=== PATIENT | male | born 1950 | race Caucasian/White ===

== ENCOUNTER 2018-01-05 14:36 | Inpatient (IN) | payer MEDICARE, OTHER ==
[~2018-01-05] VITALS: Ht 180.3 cm; Wt 108.9 kg
[~2018-01-05 14:36] MED LIST: ALBU90I INH; ALBU90OI INH; ALBU90OI6 INH; ALBU90OI61 INH; AMLO10 PO; AMLO5 PO; Adult Low Dose81 MG PO; BUPR150T2 PO; CALCA500CH PO; CARI350 PO; CEPH500 PO; CYCL10 PO; DILT120 PO; DOCU100 PO; FLUO20 PO; FLUSAL2505 IH; FLUT110OIA IH; HYDACE5 PO; HYDCHL12.5 PO; IBUP600 PO; LEVCAR2510 PO; LISI20 PO; LORA1 PO; MELO7.5 PO; METF500 PO; METO25ER PO; METPRE4DP PO; OXYACE5T PO; OXYC10ER PO; OXYC5 PO; RXOXYACE PO; TRAM50 PO
[2018-01-05 15:02] LABS: BASOPHILS ABSOLUTE AUTO 0.13 K/mm3 (0.00-0.23); BASOPHILS PERCENT AUTO 1 % (0-2); EOSINOPHILS ABSOLUTE AUTO 0.51 K/mm3 (0.00-0.68); EOSINOPHILS PERCENT AUTO 4 % (0-6); Hematocrit 46.6 % (37.0-53.0); Hemoglobin 16.2 g/dL (13.5-17.5); IMMATURE GRAN ABSOLUTE AUTO 0.08 K/mm3 (0.00-0.10); IMMATURE GRAN PERCENT AUTO 1 % (0-1); LYMPHOCYTES ABSOLUTE AUTO 3.77 K/mm3 (0.84-5.20); LYMPHOCYTES PERCENT AUTO 27 % (21-46); MONOCYTES ABSOLUTE AUTO 0.96 K/mm3 (0.16-1.47); MONOCYTES PERCENT AUTO 7 % (4-13); Mean Corpuscular HGB 31.3 pg (26.0-34.0); Mean Corpuscular HGB Conc 34.8 g/dL (31.5-36.5); Mean Corpuscular Volume 90 fL (80-100); Mean Platelet Volume 11.1 fL (9.1-12.4); NEUTROPHILS ABSOLUTE AUTO 8.38 K/mm3 (1.96-9.15); NEUTROPHILS PERCENT AUTO 61 % (41-73); Platelet Count 169 K/mm3 (150-400); RDW Coefficient Variation 13.2 % (11.7-14.2); Red Blood Cell Count 5.18 M/mm3 (4.30-5.90); White Blood Cell Count 13.83 K/mm3 (4.00-11.30)
[2018-01-05 15:14] LABS: International Normalized Ratio 1.04; Prothrombin Time Results 10.8 Sec (9.7-11.5)
[2018-01-05] MEDS ORDERED: BUDE10.22 INH (15:20)
[2018-01-05 15:30] LABS: Alanine Aminotransfer (ALT/SGP 37 U/L (12-78); Albumin, Blood 3.8 g/dL (3.4-5.0); Albumin/Globulin Ratio 0.8 (0.8-1.8); Alk Phos 78 U/L (50-136); Anion Gap 10 mmol/L (6-16); Aspartate Aminotrans (AST/SGOT 28 U/L (12-37); Bilirubin, Total 0.9 mg/dL (0.1-1.0); Blood Urea Nitrogen 14 mg/dL (8-24); Bun/Creatinine Ratio 15.8 (12.0-20.0); CO2, Blood 23 mmol/L (21-32); Calcium, Blood 9.2 mg/dL (8.5-10.1); Chloride, Blood 108 mmol/L (98-108); Creatinine, Blood 0.89 mg/dL (0.60-1.20); Globulin, Blood 4.5 g/dL (2.2-4.0); Glomerular Filtration Rate >60 (60-); Glucose, Blood 99 mg/dL (70-99); Sodium, Blood 141 mmol/L (136-145); Total Protein, Blood 8.3 g/dL (6.4-8.2)
[2018-01-06 05:59] LABS: Anion Gap 8 mmol/L (6-16); Blood Urea Nitrogen 15 mg/dL (8-24); Bun/Creatinine Ratio 18.1 (12.0-20.0); CO2, Blood 23 mmol/L (21-32); Calcium, Blood 9.1 mg/dL (8.5-10.1); Chloride, Blood 108 mmol/L (98-108); Creatinine, Blood 0.83 mg/dL (0.60-1.20); Glomerular Filtration Rate >60 (60-); Glucose, Blood 101 mg/dL (70-99); Potassium, Blood 4.7 mmol/L (3.5-5.5); Sodium, Blood 139 mmol/L (136-145)
[2018-01-06 06:15] LABS: BASOPHILS ABSOLUTE AUTO 0.06 K/mm3 (0.00-0.23); BASOPHILS PERCENT AUTO 0 % (0-2); EOSINOPHILS ABSOLUTE AUTO 0.16 K/mm3 (0.00-0.68); EOSINOPHILS PERCENT AUTO 1 % (0-6); Hematocrit 43.8 % (37.0-53.0); Hemoglobin 14.8 g/dL (13.5-17.5); IMMATURE GRAN ABSOLUTE AUTO 0.05 K/mm3 (0.00-0.10); IMMATURE GRAN PERCENT AUTO 0 % (0-1); LYMPHOCYTES ABSOLUTE AUTO 1.82 K/mm3 (0.84-5.20); LYMPHOCYTES PERCENT AUTO 13 % (21-46); MONOCYTES ABSOLUTE AUTO 0.87 K/mm3 (0.16-1.47); MONOCYTES PERCENT AUTO 6 % (4-13); Mean Corpuscular HGB 31.5 pg (26.0-34.0); Mean Corpuscular HGB Conc 33.8 g/dL (31.5-36.5); NEUTROPHILS ABSOLUTE AUTO 10.84 K/mm3 (1.96-9.15); NEUTROPHILS PERCENT AUTO 79 % (41-73); Platelet Count 119 K/mm3 (150-400); RDW Coefficient Variation 13.4 % (11.7-14.2); RDW Standard Deviation 46.1 fL (35.1-46.3)
[2018-01-06 06:17] LABS: Mean Corpuscular Volume 93 fL (80-100)
[2018-01-07 04:42] LABS: Mean Platelet Volume 11.5 fL (9.1-12.4); Platelet Count 99 K/mm3 (150-400)
== END 2018-01-07 14:50 | disposition short-term general hospital (02) | DRG 536 ==
LOC: ER 14:36 → SURS 15:54
PROVIDERS: Internal Medicine
PROC: 0QS6XZZ Reposition Right Upper Femur, External Approach (ICD-10-PCS; principal; 2018-01-05)
PROC: 3E0234Z Introduction of Serum, Toxoid and Vaccine into Muscle, Percutaneous Approach (ICD-10-PCS; 2018-01-05)
DX: S32.401A Unspecified fracture of right acetabulum, initial encounter for closed fracture (principal); J44.9 Chronic obstructive pulmonary disease, unspecified; F17.210 Nicotine dependence, cigarettes, uncomplicated; Z23 Encounter for immunization; W01.0XXA Fall on same level from slipping, tripping and stumbling without subsequent striking against object, initial encounter; L40.9 Psoriasis, unspecified
CPT/HCPCS: 36415; 71045; 72192; 73502; 80048; 80053; 85025; 85049; 85610; 93005; 93010; 94640; 94762; 96374; 96375; 96376; 99285; C9113; J0330; J1100; J1170; J1650; J2250; J2405; J2710; J3010; J7030; J7120

== ENCOUNTER 2018-08-26 16:41 | Inpatient (IN) | payer MEDICARE, OTHER ==
[~2018-08-26] VITALS: Ht 180.3 cm; Wt 107.0 kg
[~2018-08-26 16:41] MED LIST changes: +BUDE10.22 INH
[2018-08-26 17:48] LABS: BASOPHILS ABSOLUTE AUTO 0.04 K/mm3 (0.00-0.23); BASOPHILS PERCENT AUTO 1 % (0-2); EOSINOPHILS ABSOLUTE AUTO 0.07 K/mm3 (0.00-0.68); EOSINOPHILS PERCENT AUTO 1 % (0-6); Hematocrit 45.3 % (37.0-53.0); Hemoglobin 14.3 g/dL (13.5-17.5); IMMATURE GRAN ABSOLUTE AUTO 0.02 K/mm3 (0.00-0.10); IMMATURE GRAN PERCENT AUTO 0 % (0-1); LYMPHOCYTES ABSOLUTE AUTO 0.93 K/mm3 (0.84-5.20); LYMPHOCYTES PERCENT AUTO 12 % (21-46); MONOCYTES ABSOLUTE AUTO 0.61 K/mm3 (0.16-1.47); MONOCYTES PERCENT AUTO 8 % (4-13); Mean Corpuscular HGB 29.9 pg (26.0-34.0); Mean Corpuscular HGB Conc 31.6 g/dL (31.5-36.5); Mean Corpuscular Volume 95 fL (80-100); NEUTROPHILS ABSOLUTE AUTO 6.16 K/mm3 (1.96-9.15); NEUTROPHILS PERCENT AUTO 79 % (41-73); Platelet Count 101 K/mm3 (150-400); RDW Coefficient Variation 14.1 % (11.7-14.2); RDW Standard Deviation 49.3 fL (35.1-46.3); Red Blood Cell Count 4.78 M/mm3 (4.30-5.90); White Blood Cell Count 7.83 K/mm3 (4.00-11.30)
[2018-08-26 18:11] LABS: Alanine Aminotransfer (ALT/SGP 55 U/L (12-78); Albumin/Globulin Ratio 0.9 (0.8-1.8); Alk Phos 92 U/L (50-136); Anion Gap 8 mmol/L (6-16); Aspartate Aminotrans (AST/SGOT 43 U/L (12-37); Bilirubin, Total 1.1 mg/dL (0.1-1.0); Blood Urea Nitrogen 11 mg/dL (8-24); Bun/Creatinine Ratio 11.6 (12.0-20.0); CO2, Blood 25 mmol/L (21-32); Calcium, Blood 8.8 mg/dL (8.5-10.1); Chloride, Blood 106 mmol/L (98-108); Creatinine, Blood 0.95 mg/dL (0.60-1.20); Globulin, Blood 4.5 g/dL (2.2-4.0); Glomerular Filtration Rate >60 (60-); Glucose, Blood 100 mg/dL (70-99); Potassium, Blood 4.3 mmol/L (3.5-5.5); Sodium, Blood 139 mmol/L (136-145); Total Protein, Blood 8.5 g/dL (6.4-8.2)
[2018-08-26 18:12] LABS: Troponin I 0.045 ng/mL (0.000-0.040)
[2018-08-26] MEDS ORDERED: LOSA50 PO (19:29)
[2018-08-26] MEDS ORDERED: TIOT18 INH (19:30)
[2018-08-28 06:24] LABS: BASOPHILS ABSOLUTE AUTO 0.02 K/mm3 (0.00-0.23); BASOPHILS PERCENT AUTO 0 % (0-2); EOSINOPHILS PERCENT AUTO 0 % (0-6); Hematocrit 44.8 % (37.0-53.0); IMMATURE GRAN ABSOLUTE AUTO 0.09 K/mm3 (0.00-0.10); IMMATURE GRAN PERCENT AUTO 1 % (0-1); LYMPHOCYTES PERCENT AUTO 4 % (21-46); MONOCYTES PERCENT AUTO 4 % (4-13); Mean Corpuscular HGB 30.2 pg (26.0-34.0); Mean Corpuscular HGB Conc 31.3 g/dL (31.5-36.5); Mean Corpuscular Volume 97 fL (80-100); Mean Platelet Volume 12.1 fL (9.1-12.4); NEUTROPHILS ABSOLUTE AUTO 12.33 K/mm3 (1.96-9.15); NEUTROPHILS PERCENT AUTO 92 % (41-73); Platelet Count 98 K/mm3 (150-400); RDW Coefficient Variation 14.1 % (11.7-14.2); RDW Standard Deviation 50.1 fL (35.1-46.3); Red Blood Cell Count 4.64 M/mm3 (4.30-5.90); White Blood Cell Count 13.44 K/mm3 (4.00-11.30)
[2018-08-28 06:39] LABS: Anion Gap 9 mmol/L (6-16); Blood Urea Nitrogen 35 mg/dL (8-24); Bun/Creatinine Ratio 33.7 (12.0-20.0); CO2, Blood 23 mmol/L (21-32); Calcium, Blood 8.8 mg/dL (8.5-10.1); Chloride, Blood 106 mmol/L (98-108); Creatinine, Blood 1.04 mg/dL (0.60-1.20); Glomerular Filtration Rate >60 (60-); Glucose, Blood 137 mg/dL (70-99); Sodium, Blood 138 mmol/L (136-145)
[2018-08-28 09:25] LABS: PCO2 Arterial 50.1 mmHg (35-45); PO2 Arterial 155 mmHg (80-100); pH Blood Arterial 7.33 (7.35-7.45)
[2018-08-28 10:04] LABS: Troponin I 0.036 ng/mL (0.000-0.040); Very Low Density Lipoprot Chol 13 mg/dL (6-32)
[2018-08-28 10:05] LABS: CHOL/HDL RATIO 2.5; Cholesterol 84 mg/dL (50-200); HDL Cholesterol 34 mg/dL (>39); LDL/HDL RATIO 1.1; Low Density Lipoprotein Chol 37 mg/dL (0-110); Triglycerides 65 mg/dL (30-160)
[2018-08-28 11:55] LABS: Adenovirus Not Detected (NOT DETECT); Bordetella pertussis Not Detected (NOT DETECT); Chlamydophila pneumoniae Not Detected (NOT DETECT); Coronavirus 229E Not Detected (NOT DETECT); Coronavirus HKU1 Not Detected (NOT DETECT); Coronavirus NL63 Not Detected (NOT DETECT); Coronavirus OC43 Not Detected (NOT DETECT); Human Metapneumovirus Not Detected (NOT DETECT); Human Rhinovirus/Enterovirus Not Detected (NOT DETECT); Influenza A/2009-H1 Not Detected (NOT DETECT); Influenza A/H1 Not Detected (NOT DETECT); Influenza A/H3 Not Detected (NOT DETECT); Influenza B Not Detected (NOT DETECT); Mycoplasma pneumoniae Not Detected (NOT DETECT); Parainfluenza Virus 1 Not Detected (NOT DETECT); Parainfluenza Virus 2 Not Detected (NOT DETECT); Parainfluenza Virus 4 Not Detected (NOT DETECT); Respiratory Syncytial Virus Not Detected (NOT DETECT)
[2018-08-28 13:17] LABS: Influenza A Not Detected (NOT DETECT); Parainfluenza Virus 3 Detected (NOT DETECT)
[2018-08-29 04:09] LABS: BASOPHILS ABSOLUTE AUTO 0.01 K/mm3 (0.00-0.23); BASOPHILS PERCENT AUTO 0 % (0-2); EOSINOPHILS ABSOLUTE AUTO 0.01 K/mm3 (0.00-0.68); EOSINOPHILS PERCENT AUTO 0 % (0-6); Hematocrit 43.6 % (37.0-53.0); Hemoglobin 13.3 g/dL (13.5-17.5); IMMATURE GRAN ABSOLUTE AUTO 0.07 K/mm3 (0.00-0.10); IMMATURE GRAN PERCENT AUTO 1 % (0-1); LYMPHOCYTES PERCENT AUTO 4 % (21-46); MONOCYTES ABSOLUTE AUTO 0.31 K/mm3 (0.16-1.47); MONOCYTES PERCENT AUTO 3 % (4-13); Mean Corpuscular HGB 29.2 pg (26.0-34.0); Mean Corpuscular HGB Conc 30.5 g/dL (31.5-36.5); Mean Corpuscular Volume 96 fL (80-100); Mean Platelet Volume 11.5 fL (9.1-12.4); NEUTROPHILS PERCENT AUTO 93 % (41-73); Platelet Count 115 K/mm3 (150-400); Red Blood Cell Count 4.56 M/mm3 (4.30-5.90)
[2018-08-29 04:28] LABS: Albumin, Blood 3.3 g/dL (3.4-5.0); Anion Gap 6 mmol/L (6-16); Blood Urea Nitrogen 44 mg/dL (8-24); Bun/Creatinine Ratio 38.3 (12.0-20.0); CO2, Blood 32 mmol/L (21-32); Calcium, Blood 8.7 mg/dL (8.5-10.1); Chloride, Blood 104 mmol/L (98-108); Creatinine, Blood 1.15 mg/dL (0.60-1.20); Glomerular Filtration Rate >60 (60-); Glucose, Blood 144 mg/dL (70-99); Phosphorus, Blood 4.3 mg/dL (2.5-4.9); Potassium, Blood 4.9 mmol/L (3.5-5.5); Sodium, Blood 142 mmol/L (136-145)
[2018-08-29 04:40] LABS: PO2 Arterial 139 mmHg (80-100); pH Blood Arterial 7.25 (7.35-7.45)
[2018-08-29 04:41] LABS: PCO2 Arterial 75.8 mmHg (35-45)
[2018-08-29 06:55] LABS: Base Excess Venous 6.3 mmol/L; PCO2 Venous 69.5 mmHg (38-42); PO2 Venous 86.1 mmHg (38-42)
[2018-08-29 06:56] LABS: pH Blood Venous 7.28 (7.34-7.37)
[2018-08-29 11:58] LABS: PCO2 Arterial 72.3 mmHg (35-45); PO2 Arterial 78.9 mmHg (80-100); pH Blood Arterial 7.29 (7.35-7.45)
[2018-08-29 17:20] LABS: Base Excess Venous 9.7 mmol/L; PCO2 Venous 83.3 mmHg (38-42); PO2 Venous 29.3 mmHg (38-42); pH Blood Venous 7.25 (7.34-7.37)
[2018-08-30 04:13] LABS: BASOPHILS ABSOLUTE AUTO 0.01 K/mm3 (0.00-0.23); BASOPHILS PERCENT AUTO 0 % (0-2); EOSINOPHILS ABSOLUTE AUTO 0.02 K/mm3 (0.00-0.68); EOSINOPHILS PERCENT AUTO 0 % (0-6); Hematocrit 42.8 % (37.0-53.0); IMMATURE GRAN ABSOLUTE AUTO 0.09 K/mm3 (0.00-0.10); IMMATURE GRAN PERCENT AUTO 1 % (0-1); LYMPHOCYTES PERCENT AUTO 5 % (21-46); MONOCYTES ABSOLUTE AUTO 0.25 K/mm3 (0.16-1.47); MONOCYTES PERCENT AUTO 3 % (4-13); Mean Corpuscular HGB 29.7 pg (26.0-34.0); Mean Corpuscular HGB Conc 30.4 g/dL (31.5-36.5); Mean Corpuscular Volume 98 fL (80-100); Mean Platelet Volume 11.5 fL (9.1-12.4); NEUTROPHILS ABSOLUTE AUTO 8.49 K/mm3 (1.96-9.15); NEUTROPHILS PERCENT AUTO 91 % (41-73); Platelet Count 106 K/mm3 (150-400); RDW Coefficient Variation 13.5 % (11.7-14.2); RDW Standard Deviation 49.6 fL (35.1-46.3); Red Blood Cell Count 4.37 M/mm3 (4.30-5.90); White Blood Cell Count 9.36 K/mm3 (4.00-11.30)
[2018-08-30 04:53] LABS: Albumin, Blood 3.3 g/dL (3.4-5.0); Anion Gap 6 mmol/L (6-16); Blood Urea Nitrogen 41 mg/dL (8-24); Bun/Creatinine Ratio 47.1 (12.0-20.0); CO2, Blood 34 mmol/L (21-32); Calcium, Blood 8.5 mg/dL (8.5-10.1); Chloride, Blood 101 mmol/L (98-108); Creatinine, Blood 0.87 mg/dL (0.60-1.20); Glomerular Filtration Rate >60 (60-); Glucose, Blood 140 mg/dL (70-99); Potassium, Blood 4.8 mmol/L (3.5-5.5); Sodium, Blood 141 mmol/L (136-145)
[2018-08-30 05:18] LABS: PO2 Arterial 113 mmHg (80-100)
[2018-08-30 05:19] LABS: PCO2 Arterial 75.8 mmHg (35-45); pH Blood Arterial 7.29 (7.35-7.45)
[2018-08-30 16:51] LABS: Base Excess Venous 12.3 mmol/L; PCO2 Venous 67.1 mmHg (38-42); PO2 Venous 51.6 mmHg (38-42); pH Blood Venous 7.36 (7.34-7.37)
[2018-08-31 03:23] LABS: Base Excess Venous 10.5 mmol/L; Bicarbonate Venous 31.5 mmol/L (24.0-30.0); PCO2 Venous 65.8 mmHg (38-42)
[2018-08-31 03:25] LABS: pH Blood Venous 7.35 (7.34-7.37)
[2018-08-31 05:07] LABS: BASOPHILS ABSOLUTE AUTO 0.01 K/mm3 (0.00-0.23); BASOPHILS PERCENT AUTO 0 % (0-2); EOSINOPHILS PERCENT AUTO 0 % (0-6); Hematocrit 45.3 % (37.0-53.0); Hemoglobin 13.8 g/dL (13.5-17.5); IMMATURE GRAN ABSOLUTE AUTO 0.12 K/mm3 (0.00-0.10); IMMATURE GRAN PERCENT AUTO 1 % (0-1); LYMPHOCYTES ABSOLUTE AUTO 0.47 K/mm3 (0.84-5.20); LYMPHOCYTES PERCENT AUTO 4 % (21-46); MONOCYTES ABSOLUTE AUTO 0.33 K/mm3 (0.16-1.47); MONOCYTES PERCENT AUTO 3 % (4-13); Mean Corpuscular HGB 29.8 pg (26.0-34.0); Mean Corpuscular HGB Conc 30.5 g/dL (31.5-36.5); Mean Corpuscular Volume 98 fL (80-100); Mean Platelet Volume 11.9 fL (9.1-12.4); NEUTROPHILS ABSOLUTE AUTO 11.05 K/mm3 (1.96-9.15); NEUTROPHILS PERCENT AUTO 92 % (41-73); Platelet Count 106 K/mm3 (150-400); RDW Coefficient Variation 13.5 % (11.7-14.2); RDW Standard Deviation 48.7 fL (35.1-46.3); Red Blood Cell Count 4.63 M/mm3 (4.30-5.90); White Blood Cell Count 11.98 K/mm3 (4.00-11.30)
[2018-08-31 05:30] LABS: Albumin, Blood 3.5 g/dL (3.4-5.0); Anion Gap 4 mmol/L (6-16); Blood Urea Nitrogen 47 mg/dL (8-24); Bun/Creatinine Ratio 50.8 (12.0-20.0); CO2, Blood 36 mmol/L (21-32); Calcium, Blood 8.9 mg/dL (8.5-10.1); Chloride, Blood 102 mmol/L (98-108); Creatinine, Blood 0.93 mg/dL (0.60-1.20); Glomerular Filtration Rate >60 (60-); Glucose, Blood 147 mg/dL (70-99); Phosphorus, Blood 2.8 mg/dL (2.5-4.9); Sodium, Blood 142 mmol/L (136-145)
[2018-09-01 03:26] LABS: Base Excess Venous 13.7 mmol/L; Bicarbonate Venous 34.4 mmol/L (24.0-30.0); PCO2 Venous 67.8 mmHg (38-42); PO2 Venous 60.9 mmHg (38-42); pH Blood Venous 7.37 (7.34-7.37)
[2018-09-01 03:40] LABS: BASOPHILS ABSOLUTE AUTO 0.03 K/mm3 (0.00-0.23); BASOPHILS PERCENT AUTO 0 % (0-2); EOSINOPHILS ABSOLUTE AUTO 0.02 K/mm3 (0.00-0.68); EOSINOPHILS PERCENT AUTO 0 % (0-6); Hematocrit 43.7 % (37.0-53.0); Hemoglobin 13.5 g/dL (13.5-17.5); IMMATURE GRAN ABSOLUTE AUTO 0.31 K/mm3 (0.00-0.10); IMMATURE GRAN PERCENT AUTO 2 % (0-1); LYMPHOCYTES ABSOLUTE AUTO 0.83 K/mm3 (0.84-5.20); LYMPHOCYTES PERCENT AUTO 6 % (21-46); MONOCYTES ABSOLUTE AUTO 0.61 K/mm3 (0.16-1.47); MONOCYTES PERCENT AUTO 4 % (4-13); Mean Corpuscular HGB 29.9 pg (26.0-34.0); Mean Corpuscular HGB Conc 30.9 g/dL (31.5-36.5); Mean Corpuscular Volume 97 fL (80-100); NEUTROPHILS PERCENT AUTO 88 % (41-73); Platelet Count 145 K/mm3 (150-400); RDW Coefficient Variation 13.5 % (11.7-14.2); RDW Standard Deviation 48.3 fL (35.1-46.3); Red Blood Cell Count 4.52 M/mm3 (4.30-5.90)
[2018-09-01 03:46] LABS: Alanine Aminotransfer (ALT/SGP 82 U/L (12-78); Albumin, Blood 3.2 g/dL (3.4-5.0); Albumin/Globulin Ratio 0.9 (0.8-1.8); Alk Phos 49 U/L (50-136); Anion Gap 1 mmol/L (6-16); Aspartate Aminotrans (AST/SGOT 38 U/L (12-37); Bilirubin, Total 0.7 mg/dL (0.1-1.0); Blood Urea Nitrogen 50 mg/dL (8-24); Bun/Creatinine Ratio 58.7 (12.0-20.0); CO2, Blood 39 mmol/L (21-32); Calcium, Blood 8.5 mg/dL (8.5-10.1); Chloride, Blood 100 mmol/L (98-108); Creatinine, Blood 0.85 mg/dL (0.60-1.20); Globulin, Blood 3.4 g/dL (2.2-4.0); Glomerular Filtration Rate >60 (60-); Glucose, Blood 146 mg/dL (70-99); Potassium, Blood 5.5 mmol/L (3.5-5.5); Sodium, Blood 140 mmol/L (136-145); Total Protein, Blood 6.6 g/dL (6.4-8.2)
[2018-09-02 03:47] LABS: BASOPHILS ABSOLUTE AUTO 0.03 K/mm3 (0.00-0.23); BASOPHILS PERCENT AUTO 0 % (0-2); EOSINOPHILS ABSOLUTE AUTO 0.01 K/mm3 (0.00-0.68); EOSINOPHILS PERCENT AUTO 0 % (0-6); Hematocrit 40.1 % (37.0-53.0); Hemoglobin 12.7 g/dL (13.5-17.5); IMMATURE GRAN ABSOLUTE AUTO 0.26 K/mm3 (0.00-0.10); IMMATURE GRAN PERCENT AUTO 2 % (0-1); LYMPHOCYTES ABSOLUTE AUTO 1.04 K/mm3 (0.84-5.20); LYMPHOCYTES PERCENT AUTO 8 % (21-46); MONOCYTES ABSOLUTE AUTO 0.58 K/mm3 (0.16-1.47); MONOCYTES PERCENT AUTO 4 % (4-13); Mean Corpuscular HGB 29.8 pg (26.0-34.0); Mean Corpuscular HGB Conc 31.7 g/dL (31.5-36.5); Mean Platelet Volume 10.9 fL (9.1-12.4); NEUTROPHILS ABSOLUTE AUTO 11.15 K/mm3 (1.96-9.15); NEUTROPHILS PERCENT AUTO 85 % (41-73); Platelet Count 130 K/mm3 (150-400); RDW Coefficient Variation 13.2 % (11.7-14.2); RDW Standard Deviation 45.2 fL (35.1-46.3); Red Blood Cell Count 4.26 M/mm3 (4.30-5.90); White Blood Cell Count 13.07 K/mm3 (4.00-11.30)
[2018-09-02 03:48] LABS: Albumin, Blood 3.1 g/dL (3.4-5.0); Anion Gap 5 mmol/L (6-16); Blood Urea Nitrogen 36 mg/dL (8-24); Bun/Creatinine Ratio 43.1 (12.0-20.0); CO2, Blood 35 mmol/L (21-32); Calcium, Blood 8.4 mg/dL (8.5-10.1); Chloride, Blood 99 mmol/L (98-108); Creatinine, Blood 0.84 mg/dL (0.60-1.20); Glomerular Filtration Rate >60 (60-); Glucose, Blood 136 mg/dL (70-99); Phosphorus, Blood 3.3 mg/dL (2.5-4.9); Potassium, Blood 5.2 mmol/L (3.5-5.5); Sodium, Blood 139 mmol/L (136-145)
[2018-09-02 03:49] LABS: Mean Corpuscular Volume 94 fL (80-100)
[2018-09-03 04:17] LABS: Alanine Aminotransfer (ALT/SGP 75 U/L (12-78); Albumin, Blood 3.1 g/dL (3.4-5.0); Albumin/Globulin Ratio 0.9 (0.8-1.8); Alk Phos 43 U/L (50-136); Anion Gap 6 mmol/L (6-16); Aspartate Aminotrans (AST/SGOT 36 U/L (12-37); Bilirubin, Total 0.7 mg/dL (0.1-1.0); Blood Urea Nitrogen 32 mg/dL (8-24); CO2, Blood 34 mmol/L (21-32); Calcium, Blood 8.8 mg/dL (8.5-10.1); Chloride, Blood 99 mmol/L (98-108); Globulin, Blood 3.3 g/dL (2.2-4.0); Glomerular Filtration Rate >60 (60-); Glucose, Blood 154 mg/dL (70-99); Potassium, Blood 5.1 mmol/L (3.5-5.5); Sodium, Blood 139 mmol/L (136-145); Total Protein, Blood 6.4 g/dL (6.4-8.2)
[2018-09-04 04:25] LABS: Hematocrit 40.2 % (37.0-53.0); Hemoglobin 13.2 g/dL (13.5-17.5); Mean Corpuscular HGB Conc 32.8 g/dL (31.5-36.5); Mean Corpuscular Volume 91 fL (80-100); Mean Platelet Volume 10.7 fL (9.1-12.4); Platelet Count 163 K/mm3 (150-400); RDW Coefficient Variation 13.2 % (11.7-14.2); RDW Standard Deviation 44.4 fL (35.1-46.3); White Blood Cell Count 17.53 K/mm3 (4.00-11.30)
[2018-09-04 04:41] LABS: Albumin, Blood 3.3 g/dL (3.4-5.0); Anion Gap 6 mmol/L (6-16); Blood Urea Nitrogen 33 mg/dL (8-24); Bun/Creatinine Ratio 39.4 (12.0-20.0); CO2, Blood 34 mmol/L (21-32); Chloride, Blood 98 mmol/L (98-108); Creatinine, Blood 0.84 mg/dL (0.60-1.20); Glomerular Filtration Rate >60 (60-); Glucose, Blood 148 mg/dL (70-99); Phosphorus, Blood 3.7 mg/dL (2.5-4.9); Potassium, Blood 5.2 mmol/L (3.5-5.5); Sodium, Blood 138 mmol/L (136-145)
[2018-09-05 05:00] LABS: PCO2 Arterial 55.5 mmHg (35-45); PO2 Arterial 62.9 mmHg (80-100); pH Blood Arterial 7.42 (7.35-7.45)
[2018-09-05 05:18] LABS: Hematocrit 40.4 % (37.0-53.0); Hemoglobin 13.1 g/dL (13.5-17.5); Mean Corpuscular HGB 29.8 pg (26.0-34.0); Mean Corpuscular HGB Conc 32.4 g/dL (31.5-36.5); Mean Corpuscular Volume 92 fL (80-100); Mean Platelet Volume 10.8 fL (9.1-12.4); Platelet Count 154 K/mm3 (150-400); RDW Coefficient Variation 13.4 % (11.7-14.2); RDW Standard Deviation 45.2 fL (35.1-46.3); White Blood Cell Count 17.66 K/mm3 (4.00-11.30)
[2018-09-05 05:32] LABS: Albumin, Blood 3.1 g/dL (3.4-5.0); Anion Gap 6 mmol/L (6-16); Blood Urea Nitrogen 33 mg/dL (8-24); Bun/Creatinine Ratio 41.1 (12.0-20.0); CO2, Blood 34 mmol/L (21-32); Calcium, Blood 8.7 mg/dL (8.5-10.1); Chloride, Blood 99 mmol/L (98-108); Glomerular Filtration Rate >60 (60-); Glucose, Blood 103 mg/dL (70-99); Phosphorus, Blood 3.7 mg/dL (2.5-4.9); Potassium, Blood 4.4 mmol/L (3.5-5.5); Sodium, Blood 139 mmol/L (136-145)
[2018-09-06] MEDS ORDERED: CARV3.125 PO (11:20)
[2018-09-06] MEDS ORDERED: GUAI600T33 PO (11:21)
[2018-09-06] MEDS ORDERED: DOCU100 PO (11:21)
[2018-09-06] MEDS ORDERED: MAGCHL64ER PO (11:22)
[2018-09-06] MEDS ORDERED: SIME80CH PO (11:23)
[2018-09-06] MEDS ORDERED: GAVILAX17 GM PO (11:23)
[2018-09-06] MEDS ORDERED: PRED10 PO (11:26)
[2018-09-06] MEDS ORDERED: ALPR.5 PO (11:37)
[2018-09-06] MEDS ORDERED: FURO20 PO (11:38)
== END 2018-09-06 12:48 | disposition home or self-care (01) | DRG 291 ==
LOC: ER 16:41 → ICUE 19:52 → MEDS 19:52 → ICUE 21:02 → MEDS 21:48 → ICUE 08-28 09:39 → MEDS 08-31 18:25 → ICUE 08-31 18:54 → ICUW 09-01 17:06 → PCU 09-03 15:28
PROVIDERS: Emergency Medicine; Family Medicine; Hospitalist; Internal Medicine; Internal Medicine Critical Care Medicine; Internal Medicine Pulmonary Disease
PROC: 5A09357 Assistance with Respiratory Ventilation, Less than 24 Consecutive Hours, Continuous Positive Airway Pressure (ICD-10-PCS; principal; 2018-08-26)
DX: I11.0 Hypertensive heart disease with heart failure (principal); J96.01 Acute respiratory failure with hypoxia; I16.1 Hypertensive emergency; J44.1 Chronic obstructive pulmonary disease with (acute) exacerbation; E87.3 Alkalosis; I24.8 Other forms of acute ischemic heart disease; I50.41 Acute combined systolic (congestive) and diastolic (congestive) heart failure; Z68.34 Body mass index [BMI] 34.0-34.9, adult; E66.9 Obesity, unspecified; F17.210 Nicotine dependence, cigarettes, uncomplicated; L40.9 Psoriasis, unspecified; E87.70 Fluid overload, unspecified; D69.6 Thrombocytopenia, unspecified; I42.9 Cardiomyopathy, unspecified; T50.1X5A Adverse effect of loop [high-ceiling] diuretics, initial encounter; Y92.239 Unspecified place in hospital as the place of occurrence of the external cause; D72.829 Elevated white blood cell count, unspecified; R74.8 Abnormal levels of other serum enzymes; B33.8 Other specified viral diseases; I42.0 Dilated cardiomyopathy
CPT/HCPCS: 36415; 36600; 71045; 74176; 80048; 80053; 80061; 80069; 82803; 83690; 83735; 83880; 84145; 84484; 85025; 85027; 85379; 87070; 87205; 87486; 87581; 87633; 87798; 90686; 93005; 93010; 93306; 93971; 94010; 94640; 94644; 94660; 94760; 94761; 94762; 96365; 96375; 97162; 97165; 97530; 99285-25; 99406; C1751; C9113; G8978; G8979; G8980; G8987; G8988; G8989; J0360; J0456; J0696; J1650; J1940; J2060; J2270; J2405; J2765; J2920; J2930; J3010; J7040; J7050

== ENCOUNTER 2018-11-03 07:24 | Day surgery (SDC) | payer MEDICARE, OTHER ==
[~2018-11-03] VITALS: Ht 180.3 cm; Wt 114.0 kg
[~2018-11-03 07:24] MED LIST changes: +ALPR.5 PO; +ASPI325 PO; -Adult Low Dose81 MG PO; +CARV3.125 PO; +FURO20 PO; +GAVILAX17 GM PO; +GUAI600T33 PO; +Gas Relief80 MG PO; +LOSA50 PO; +MAGNESIUM100 MG PO; +PRED10 PO; +SIME80CH PO; +TIOT18 INH
[2018-11-03] MEDS ORDERED: DOXY100 PO (07:48)
[2018-11-03] MEDS ORDERED: BUDE6HFA INH (08:07)
[2018-11-03] MEDS ORDERED: ATOR40TA PO (12:44)
[2018-11-03] MEDS ORDERED: METO25ER PO (12:44)
[2018-11-03] MEDS ORDERED: Adult Low Dose81 MG PO (12:47)
--- NOTE | 2018-11-03 13:29 | NUR ---
PT MEDICATED WITH METOPROLOL SUCCINATE 25 MG PO NOW FOR HTN PER DR. LINARES. WILL CONTINUE TO MONITOR VS.
--- NOTE | 2018-11-03 14:36 | NUR ---
PT VERBALIZED UNDERSTANDING OF D/C INSTRUCTIONS, PAPERWORK PROVIDED TO PT IN [facility]. TR BAND REMOVED FROM RIGHT WRIST, RED CLOTH DOT DRESSING APPLIED. NO ACTIVE BLEEDING, OOZING, OR PAIN. ARM BOARD PLACED BACK ONTO RIGHT WRIST FOR SUPPORT. PT HERE TO DRIVE HIM HOME. TAKEN OUT TO PRIVATE VEHICLE VIA W/C. NADN AT TIME OF DISPO. PT ENCOURAGED TO FOLLOW UP WITH PROVIDER SCHEDULED. SHAWN.
--- NOTE | 2018-11-03 14:38 | NUR ---
PT IV WAS REMOVED FROM LFA WITH CATH INTACT, PRESSURE DRESSING APPLIED BEFORE DISPO.
== END 2018-11-03 14:40 | disposition home or self-care (01) ==
LOC: MHTC 07:24
PROC: 4A023N8 Measurement of Cardiac Sampling and Pressure, Bilateral, Percutaneous Approach (ICD-10-PCS; principal; 2018-11-03)
PROC: B2111ZZ Fluoroscopy of Multiple Coronary Arteries using Low Osmolar Contrast (ICD-10-PCS; principal; 2018-11-03)
DX: I25.10 Atherosclerotic heart disease of native coronary artery without angina pectoris (principal); I27.20 Pulmonary hypertension, unspecified; J44.9 Chronic obstructive pulmonary disease, unspecified; I42.9 Cardiomyopathy, unspecified; I50.9 Heart failure, unspecified
CPT/HCPCS: 85347; 93454; 93460; 93571; 93572; 99152; 99153; C1769; C1887; C1894; J1644; J2250; J3010; J7030; Q9967

== ENCOUNTER 2019-04-06 18:57 | Inpatient (IN) | payer MEDICARE, OTHER ==
[~2019-04-06] VITALS: Ht 180.3 cm; Wt 114.9 kg
[~2019-04-06 18:57] MED LIST changes: +ATOR40TA PO; +Adult Low Dose81 MG PO; +BUDE6HFA INH; +DOXY100 PO; -LOSA50 PO; +LOSARTAN POTAS100 MG PO; -MAGNESIUM100 MG PO
[2019-04-06 20:15] LABS: BASOPHILS ABSOLUTE AUTO 0.03 K/mm3 (0.00-0.23); BASOPHILS PERCENT AUTO 0 % (0-2); EOSINOPHILS ABSOLUTE AUTO 0.26 K/mm3 (0.00-0.68); EOSINOPHILS PERCENT AUTO 3 % (0-6); Hematocrit 35.9 % (37.0-53.0); Hemoglobin 11.7 g/dL (13.5-17.5); IMMATURE GRAN ABSOLUTE AUTO 0.03 K/mm3 (0.00-0.10); IMMATURE GRAN PERCENT AUTO 0 % (0-1); LYMPHOCYTES ABSOLUTE AUTO 1.07 K/mm3 (0.84-5.20); LYMPHOCYTES PERCENT AUTO 13 % (21-46); MONOCYTES ABSOLUTE AUTO 0.56 K/mm3 (0.16-1.47); MONOCYTES PERCENT AUTO 7 % (4-13); Mean Corpuscular HGB Conc 32.6 g/dL (31.5-36.5); Mean Corpuscular Volume 95 fL (80-100); Mean Platelet Volume 11.6 fL (9.1-12.4); NEUTROPHILS ABSOLUTE AUTO 6.39 K/mm3 (1.96-9.15); NEUTROPHILS PERCENT AUTO 77 % (41-73); Platelet Count 117 K/mm3 (150-400); RDW Coefficient Variation 14.2 % (11.7-14.2); RDW Standard Deviation 49.1 fL (35.1-46.3); Red Blood Cell Count 3.77 M/mm3 (4.30-5.90); White Blood Cell Count 8.34 K/mm3 (4.00-11.30)
[2019-04-06 20:36] LABS: Alanine Aminotransfer (ALT/SGP 119 U/L (12-78); Albumin, Blood 3.3 g/dL (3.4-5.0); Albumin/Globulin Ratio 0.8 (0.8-1.8); Alk Phos 115 U/L (50-136); Anion Gap 4 mmol/L (6-16); Aspartate Aminotrans (AST/SGOT 74 U/L (12-37); Bilirubin, Total 0.7 mg/dL (0.1-1.0); Blood Urea Nitrogen 20 mg/dL (8-24); Bun/Creatinine Ratio 17.9 (12.0-20.0); CO2, Blood 28 mmol/L (21-32); Calcium, Blood 8.7 mg/dL (8.5-10.1); Chloride, Blood 111 mmol/L (98-108); Creatinine, Blood 1.12 mg/dL (0.60-1.20); Glomerular Filtration Rate >60 (60-); Glucose, Blood 104 mg/dL (70-99); Potassium, Blood 4.4 mmol/L (3.5-5.5); Sodium, Blood 143 mmol/L (136-145); Total Protein, Blood 7.3 g/dL (6.4-8.2); Troponin I <0.015 ng/mL (0.000-0.040)
[2019-04-06] MEDS ORDERED: CARV6.25 PO (20:53)
[2019-04-06] MEDS ORDERED: MAGNESIUM100 MG PO (21:23)
[2019-04-07 04:02] LABS: Hematocrit 36.9 % (37.0-53.0); Hemoglobin 12.1 g/dL (13.5-17.5); Mean Corpuscular HGB 31.1 pg (26.0-34.0); Mean Corpuscular HGB Conc 32.8 g/dL (31.5-36.5); Mean Corpuscular Volume 95 fL (80-100); Mean Platelet Volume 11.5 fL (9.1-12.4); Platelet Count 114 K/mm3 (150-400); RDW Coefficient Variation 14.1 % (11.7-14.2); RDW Standard Deviation 48.6 fL (35.1-46.3); Red Blood Cell Count 3.89 M/mm3 (4.30-5.90); White Blood Cell Count 7.34 K/mm3 (4.00-11.30)
[2019-04-07 04:22] LABS: Alanine Aminotransfer (ALT/SGP 105 U/L (12-78); Albumin, Blood 3.2 g/dL (3.4-5.0); Albumin/Globulin Ratio 0.8 (0.8-1.8); Alk Phos 112 U/L (50-136); Anion Gap 6 mmol/L (6-16); Aspartate Aminotrans (AST/SGOT 46 U/L (12-37); Bilirubin, Total 0.7 mg/dL (0.1-1.0); Blood Urea Nitrogen 19 mg/dL (8-24); Bun/Creatinine Ratio 20.6 (12.0-20.0); CO2, Blood 27 mmol/L (21-32); Calcium, Blood 8.8 mg/dL (8.5-10.1); Chloride, Blood 109 mmol/L (98-108); Creatinine, Blood 0.92 mg/dL (0.60-1.20); Glomerular Filtration Rate >60 (60-); Glucose, Blood 160 mg/dL (70-99); Potassium, Blood 4.3 mmol/L (3.5-5.5); Sodium, Blood 142 mmol/L (136-145); Total Protein, Blood 7.2 g/dL (6.4-8.2)
--- NOTE | 2019-04-07 06:14 | NUR ---
PT NEW ADMIT THIS SHIFT FOR DX ACUTE CHF, BRADYCARDIA, NEW BBB. RATE HAS BEEN NOTED LOW 34 AT TIMES, PT DENIES DIZZINESS/VERTIGO, DENIES CP/PRESSURE, DENIES N/V, STATES THAT HE FEELS FATIGUED. 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 LUNGS DIM THROUGHOUT, MAINTAINS SATS WHEN AWAKE WELL, WITH SLEEP HE IS NOTED TO DECREASE TO 89% WITH OXYGEN AT 3 L/MIN VIA NC, HE REPORTS THAT HE DOES HAVE SLEEP APNEA HOWEVER DOES NOT HAVE CPAP AT HOME AND DECLINES OFFERED CPAP.
--- NOTE | 2019-04-07 08:00 | NUR ---
DR. THOMPSON IN TO SEE PATIENT.
--- NOTE | 2019-04-07 08:15 | NUR ---
INITIAL ASSESSMENT PATIENT RESTING QUIETLY IN BED UPON ENTERING ROOM. PATIENT ALERT AND ORIENTED, AFEBRILE. PATIENT PLEASANT AND COOPERATIVE. PATIENT SBA. PATIENT DECREASED TO 2 L NC FROM 4 L NC AND REMAINS SATTING 90% AND GREATER. PATIENT STATES AT HOME HE WEARS 3-4 L NC. PATIENT HAS MOIST, PRODUCTIVE COUGH- PRODUCING MODERATE AMOUNT OF THICK, REED SPUTUM. EXPIRATORY RHONCHI NOTED IN RUL, AND LOWER LUNG LOBES. EXPIRATORY WHEEZE NOTED IN CARMEN. PATIENT SOB WITH EXERTION. 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 HR 34 TO 70S. BP 193/ 99. DR. THOMPSON AWARE. ABDOMEN MODERATELY DISTENDED; PATIENT STATES NORMAL FOR HIM. ABDOMEN SOFT, NONTENDER, WITH HYPERACTIVE BS NOTED. LAST BM YESTERDAY. PATIENT VOIDING YELLOW URINE INTO BEDSIDE URINAL WITH NO PROBLEMS. SKIN IS DRY AND FRAGILE. SCALING NOTED TO BLES. SCATTERED BRUISES NOTED TO BUES. TRACE EDEMA NOTED IN LLE. 2+ EDEMA NOTED R ANKLE. IV FLUSHED AND SALINE LOCKED. BED LOW, CALL LIGHT IN REACH. WILL CONTINUE TO MONITOR PATIENT FREQUENTLY THROUGHTOUT SHIFT.
--- NOTE | 2019-04-07 09:49 | NUR ---
Echocardiogram performed.
--- NOTE | 2019-04-07 11:15 | NUR ---
PATIENT TAKEN TO [facility] FOR PACEMAKER PLACEMENT PROCEDURE.
--- NOTE | 2019-04-07 14:15 | NUR ---
PATIENT RETURNED FROM [facility] AT 1405. PATIENT AWAKE, ALERT AND ORIENTED. PATIENT AFEBRILE. PATIENT HAS NO COMPLAINTS OF PAIN. PATIENT SATTING 90% AND GREATER ON RA. 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 INFORMED BY HEART CENTER RN THAT DEVICE HAS LOW OF 60 AND HIGH OF 130 FOR HR. PATIENT CURRENTLY OCCASIONALLY PACED- APPEARS TO BE IN SR WITH BBB. HR IN THE 70S. SBP IN THE 180S. SLING APPLIED TO LEFT ARM. PATIENT KNOWS THAT HE MUST NOT LIFT HIS LEFT ARM ABOVE HIS SHOULDER. PATIENT TO KEEP WOUND CLEAN AND DRY FOR 7 DAYS. NO OTHER ACUTE CHANGES TO NOTE ON AT THIS TIME. VISITOR AT BEDSIDE. BED LOW, CALL LIGHT IN REACH.
--- NOTE | 2019-04-07 15:00 | NUR ---
SPOKE TO DR. LINARES CONCERNING PATIENT'S SBP UP TO 180S. DR. LINARSE INSTRUCTED TO GIVE 2100 COZAAR AND NORVASC NOW. WILL GIVE AND CONTINUE TO MONITOR.
[2019-04-07 16:42] LABS: Anion Gap 6 mmol/L (6-16); Blood Urea Nitrogen 22 mg/dL (8-24); Bun/Creatinine Ratio 20.4 (12.0-20.0); CO2, Blood 32 mmol/L (21-32); Calcium, Blood 9.4 mg/dL (8.5-10.1); Chloride, Blood 103 mmol/L (98-108); Creatinine, Blood 1.08 mg/dL (0.60-1.20); Glomerular Filtration Rate >60 (60-); Glucose, Blood 161 mg/dL (70-99); Potassium, Blood 3.9 mmol/L (3.5-5.5); Sodium, Blood 141 mmol/L (136-145)
--- NOTE | 2019-04-07 16:52 | NUR ---
SPOKE TO DR. LINARES ABOUT PATIENT'S CONTINUED HTN. SBP IN THE 170S. ALSO INFORMED THAT PATIENT IS COMPLAINING ABOUT 6/10 PAIN IN CHEST WALL WHERE PACEMAKER INSERTED. ORDERS RECEIVED. PATIENT IS SATTING 90% AND GREATER ON RA. NO OTHER ACUTE CHANGES TO NOTE ON AT THIS TIME. WILL CONTINUE TO MONITOR.
--- NOTE | 2019-04-07 18:11 | NUR ---
SPOKE TO DR. THOMPSON ABOUT PATIENT'S CONTINUED HYPERTENSION, SBP 180, DESPITE RELIEF WITH PRN PAIN MEDICATION GIVEN AND PRN HYDRALAZINE GIVEN. ORDERS RECEIVED. WILL CONTINUE TO MONITOR.
--- NOTE | 2019-04-07 18:32 | NUR ---
SHIFT SUMMARY PATIENT REMAINED ALERT AND ORIENTED T/O SHIFT. AFEBRILE. PATIENT DID NOT HAVE ANY COMPLAINTS OF PAIN UNTL AFTER PACEMAKER PROCEDURE. PATIENT GIVEN PRN PERCOCET. PATIENT HAS BEEN SATTING WELL ON RA TO 2 L NC. PATIENT HAS CONTINUED TO HAVE MOIST, PRODUCTIVE COUGH. LUNGS HAVE MOSTLY BEEN WHEEZY/ RHONCHOROUS. PATIENT 2 DEGREE TYPE 2 BLOCK WITH BBB, HR 34 TO 70S BEFORE PACEMAKER PLACEMENT. PATIENT IS NOW OCCASIONALLY PACED, NSR WITH BBB, HR 70S TO 90S. PATIENT HAS BEEN HYPERTENSIVE T/O DAY. AWARE OF HTN IN AM. SBP 160S TO 180S SINCE ARRIVING BACK FROM [facility]. PATIENT RECEIVED 2100 BP MEDS EARLY, PRN HYDRALAZINE, AND COREG RESTARTED AT DOSE OF 12.5 MG. NO CHANGE IN GI. PATIENT TOLERATED CARDIAC DIET WELL AFTER PROCEDURE. PATIENT DID NOT HAVE BM THIS SHIFT. PATIENT CONTINUES TO VOID LARGE AMOUNTS OF LIGHT YELLOW URINE. PATIENT IS RECEIVING SCHEDULED LASIX TID. L ARM IN SLING. PATIENT AWARE OF LEFT SHOULDER/ ARM RESTRICTIONS. PATIENT HAD ECHO TODAY THAT SHOWED EF OF 60%. PATIENT OFFERED BED BATH BUT REFUSED. NO OTHER ACUTE CHANGES TO NOTE ON AT THIS TIME. BED LOW, CALL LIGHT IN REACH. REPORT WILL BE GIVEN SHORTLY TO ASSUMING BOTTLE BOOTH ATTENDANT NURSE.
--- NOTE | 2019-04-07 20:00 | NUR ---
ASSUMED PT CARE: PT ALERT, PLEASANT & WATCHING TV. PT HAS L ARM IN SLING POST PACER PLACEMENT THIS AM. MONITOR SHOWS INTERMITTANTLY PACED RHYTHM WITH UNDERLYING BBB. PT CO TENDERNESS AT SITE W TOUCH, BUT OTHERWISE DENIES DISCOMFORT. DRSG W SMALL SPOT OF OLD BLOOD ON TELFA, OTHERWISE CDI. REVIEWED RESTRICTIONS OF LEFT ARM SHOULDER. PT VERBALIZES INDERSTANDING. PT USING URINAL TO VOID, SMALL AMTS OF PALE YELLOW URINE- POST LASIX. PT HAS BEEN TALKING W FAMILY ON PHONE. BP HAS BEEN ELEVATED THIS AFTERNOON AND WAS MED, SOME IMPROVEMENT NOTED, WILL CONT TO MONITOR.
--- NOTE | 2019-04-07 23:40 | NUR ---
PT WAS MED FOR CO L SHOULDER PAIN. PACER SITE CONT W BLEEDING, PT ARM CONT IN SLING. USING URINAL IN BED. MONITOR SHOWS INTERMITTANT PACED RHYTHM, VENT & AV PACING NOTED AT TIMES. VSS.
[2019-04-08 04:07] LABS: Anion Gap 2 mmol/L (6-16); Blood Urea Nitrogen 34 mg/dL (8-24); Bun/Creatinine Ratio 30.6 (12.0-20.0); CO2, Blood 34 mmol/L (21-32); Calcium, Blood 8.9 mg/dL (8.5-10.1); Chloride, Blood 104 mmol/L (98-108); Creatinine, Blood 1.11 mg/dL (0.60-1.20); Glomerular Filtration Rate >60 (60-); Glucose, Blood 135 mg/dL (70-99); Sodium, Blood 140 mmol/L (136-145)
--- NOTE | 2019-04-08 06:30 | NUR ---
PT SLEPT DURING NIGHT WHEN UNDISTURBED. 02 WAS INCREASED TO 3LNC FOR DESAT. PT HAS REFUSED TO WEAR CPAP & SIGNED WAIVER FOR REFUSAL. PT HAS BEEN COOPERATIVE W CARE, PLANS TO GO HOME TODAY. DR THOMPSON IN TO SEE PT. ABX CONT TO INFUSE, WILL GO TO IMAGING WHEN ABX COMPLETE.
--- NOTE | 2019-04-08 10:00 | NUR ---
0700-ASSUMED CARE OF PT. PT ALERT AND ORIENTED. PT WAS RECENTLY MEDICATED FOR PAIN, POST-OP SITE AREA. PT STATES PAIN 4/10. AFEBRILE. PT SEEN BY DR. LINARES. PT WILL BE DISCHARGED TODAY. 0730-SEEN BY DR. PENN, UPDATED HIM OF PT'S STATUS. CHEST X-RAY AND PACEMAKER INTERROGATION DONE.
[2019-04-08] MEDS ORDERED: CARV25 PO (10:21)
[2019-04-08] MEDS ORDERED: AMLO5 PO (10:23)
[2019-04-08] MEDS ORDERED: SPIR25 PO (10:25)
[2019-04-08] MEDS ORDERED: Percocet 5-3251 EACH PO (10:25)
[2019-04-08] MEDS ORDERED: TORSE20 PO (10:26)
--- NOTE | 2019-04-08 11:34 | NUR ---
PT HAS BEEN DISCHARGED AT THIS TIME. DISCHARGE INSTRUCTION PACKET WAS GIVEN TO PATIENT. READ TO PT & PT'S DISCHARGE INSTRUCTIONS. RECOMMENDED TO PATIENT TO READ DISCAHRGE INSTRUCTIONS A FEW TIMES. DISCONTINUED IV AT THIS TIME.
== END 2019-04-08 11:25 | disposition home or self-care (01) | DRG 242 ==
LOC: ER 18:57 → ICUW 22:03
PROVIDERS: Internal Medicine Cardiovascular Disease; Physician Assistant; ADMIT Internal Medicine
PROC: 0JH606Z Insertion of Pacemaker, Dual Chamber into Chest Subcutaneous Tissue and Fascia, Open Approach (ICD-10-PCS; principal; 2019-04-07)
PROC: 02HK3JZ Insertion of Pacemaker Lead into Right Ventricle, Percutaneous Approach (ICD-10-PCS; 2019-04-07)
PROC: 02H63JZ Insertion of Pacemaker Lead into Right Atrium, Percutaneous Approach (ICD-10-PCS; 2019-04-07)
DX: I44.2 Atrioventricular block, complete (principal); I50.23 Acute on chronic systolic (congestive) heart failure; I42.0 Dilated cardiomyopathy; L40.9 Psoriasis, unspecified; Z79.82 Long term (current) use of aspirin; F17.210 Nicotine dependence, cigarettes, uncomplicated; I25.10 Atherosclerotic heart disease of native coronary artery without angina pectoris; E78.5 Hyperlipidemia, unspecified; R00.1 Bradycardia, unspecified; I11.0 Hypertensive heart disease with heart failure; E66.01 Morbid (severe) obesity due to excess calories; Z68.34 Body mass index [BMI] 34.0-34.9, adult
CPT/HCPCS: 33208; 36415; 71045; 71046; 80048; 80053; 83735; 83880; 84484; 85025; 85027; 93005; 93010; 93306; 93971; 94640; 96374; 96375; 96376; 99152; 99153; 99285-25; C1785; C1898; J0360; J0461; J0690; J1644; J1650; J1940; J2250; J2930; J3010; J7030; J7040; J7050

== ENCOUNTER → 2019-06-03 | Outpatient (CLI) | payer MEDICARE, OTHER ==
[~2019-06-03] MED LIST changes: +CARV25 PO; +CARV6.25 PO; +MAGNESIUM100 MG PO; +Percocet 5-3251 EACH PO; +SPIR25 PO; +TORSE20 PO
[2019-06-03 15:04] LABS: Anion Gap 3 mmol/L (6-16); Blood Urea Nitrogen 23 mg/dL (8-24); Bun/Creatinine Ratio 21.5 (12.0-20.0); CO2, Blood 26 mmol/L (21-32); Calcium, Blood 9.9 mg/dL (8.5-10.1); Chloride, Blood 110 mmol/L (98-108); Creatinine, Blood 1.07 mg/dL (0.60-1.20); Glomerular Filtration Rate >60 (60-); Glucose, Blood 103 mg/dL (70-99); Potassium, Blood 4.5 mmol/L (3.5-5.5); Sodium, Blood 139 mmol/L (136-145)
== END ==
LOC: LAB SHORT 12:32 → LAB 12:32
PROVIDERS: Family Medicine
DX: R60.0 Localized edema (principal)
CPT/HCPCS: 80048

== ENCOUNTER 2021-05-17 20:03 | Emergency (ER) | payer MEDICARE, OTHER | END 2021-05-17 23:34 | disposition home or self-care (01) | LOC: ER 20:03 | DX: R07.89 Other chest pain (principal); I10 Essential (primary) hypertension; J44.9 Chronic obstructive pulmonary disease, unspecified; Z87.891 Personal history of nicotine dependence; Z79.899 Other long term (current) drug therapy ==

== ENCOUNTER → 2022-01-08 | Outpatient (CLI) | payer MEDICARE, OTHER ==
[2022-01-10 07:11] LABS: HEP A AB, IGM Negative (Negative)
== END | disposition home or self-care (01) ==
LOC: LAB 16:20 → LAB SHORT 16:20
PROVIDERS: Nurse Practitioner Family
DX: R94.5 Abnormal results of liver function studies (principal)
CPT/HCPCS: 86708; 86709

== ENCOUNTER 2022-08-02 07:05 | Day surgery (SDC) | payer MEDICARE, OTHER ==
[~2022-08-02] VITALS: Ht 177.8 cm; Wt 85.3 kg
[2022-08-02] MEDS ORDERED: Cyclobenzaprine5 MG PO (08:16)
[2022-08-02] MEDS ORDERED: Atarax10 MG PO (08:17)
[2022-08-02] MEDS ORDERED: TAMSULOSIN HCL0.4 M1 PO (08:17)
[2022-08-02] MEDS ORDERED: TIOT18 INH (08:18)
--- NOTE | 2022-08-02 08:22 | NUR ---
PT TO DAY SURGERY VIA W/C DUE TO SOB; PT DENIES USING W/C TYPICALLY. Patient states colon prep results "BEIGE" AND UNABLE TO SEE THROUGH TO THE BOTTOM OF TOILET. Patient States Post-Procedure ride home has been arranged. Pre-Op teaching done. Pt verbalizes understanding. Patient confirms NPO status and agrees with scheduled procedure.
--- NOTE | 2022-08-02 10:06 | NUR ---
PROCEDURE CANCELLED PER DR PICKENS, REPORTS TO KEEP FOLLOW UP APPT. PT REPORTS UNDERSTANDING OF INSTRUCTIONS. PT IV OUT BY OTHER RN WNL. PT OUT BY WC WITH FAMILY. Patient up to Ambulate independently. Gait steady. Discharge instructions reviewed with patient. Patient verbalizes understanding. Copy given to patient to take home. Patient States Post-Procedure ride home has been arranged. Discharged via wheelchair to private car for ride home.
== END 2022-08-02 23:23 | disposition home or self-care (01) ==
LOC: ORSCMMR 07:05 → ORD 08:00 → ORSCMMR 08:00
DX: Z86.010 Personal history of colon polyps (principal); Z53.9 Procedure and treatment not carried out, unspecified reason
CPT/HCPCS: J7120

== ENCOUNTER → 2023-07-02 | Outpatient (CLI) | payer MEDICARE, OTHER ==
[~2023-07-02] MED LIST changes: +Atarax10 MG PO; +Cyclobenzaprine5 MG PO; +TAMSULOSIN HCL0.4 M1 PO
[2023-07-02 14:35] LABS: BASOPHILS ABSOLUTE AUTO 0.08 K/mm3 (0.00-0.23); BASOPHILS PERCENT AUTO 1 % (0-2); EOSINOPHILS ABSOLUTE AUTO 0.26 K/mm3 (0.00-0.68); EOSINOPHILS PERCENT AUTO 4 % (0-6); Hematocrit 45.5 % (37.0-53.0); Hemoglobin 15.5 g/dL (13.5-17.5); IMMATURE GRAN ABSOLUTE AUTO 0.01 K/mm3 (0.00-0.10); IMMATURE GRAN PERCENT AUTO 0 % (0-1); LYMPHOCYTES ABSOLUTE AUTO 1.53 K/mm3 (0.84-5.20); LYMPHOCYTES PERCENT AUTO 23 % (21-46); MONOCYTES ABSOLUTE AUTO 0.51 K/mm3 (0.16-1.47); MONOCYTES PERCENT AUTO 8 % (4-13); Mean Corpuscular HGB 31.9 pg (26.0-34.0); Mean Corpuscular HGB Conc 34.1 g/dL (31.5-36.5); Mean Corpuscular Volume 94 fL (80-100); Mean Platelet Volume 11.3 fL (9.1-12.4); NEUTROPHILS ABSOLUTE AUTO 4.28 K/mm3 (1.96-9.15); NEUTROPHILS PERCENT AUTO 64 % (41-73); Platelet Count 154 K/mm3 (150-400); RDW Coefficient Variation 13.6 % (11.7-14.2); Red Blood Cell Count 4.86 M/mm3 (4.30-5.90); White Blood Cell Count 6.67 K/mm3 (4.00-11.30)
[2023-07-02 16:01] LABS: Albumin, Blood 3.8 g/dL (3.4-5.0); Bilirubin, Total 1.3 mg/dL (0.1-1.0); Bun/Creatinine Ratio 10.4 (12.0-20.0); Calcium, Blood 9.4 mg/dL (8.5-10.1); Creatinine, Blood 1.06 mg/dL (0.60-1.20); Potassium, Blood 4.2 mmol/L (3.5-5.5); Thyroid Stimulating Hormone 2.03 uIU/mL (0.360-4.800); Total Protein, Blood 7.8 g/dL (6.4-8.2)
== END | disposition home or self-care (01) ==
LOC: LAB 12:44 → LAB SHORT 12:44
PROVIDERS: Nurse Practitioner Family
DX: I10 Essential (primary) hypertension (principal); R53.83 Other fatigue
CPT/HCPCS: 80053; 84443; 85025

== ENCOUNTER → 2024-10-26 | Outpatient (CLI) | payer MEDICARE, OTHER ==
[2024-10-26 17:34] LABS: BASOPHILS PERCENT AUTO 1 % (0-2); EOSINOPHILS ABSOLUTE AUTO 0.31 K/mm3 (0.00-0.68); EOSINOPHILS PERCENT AUTO 4 % (0-6); Hematocrit 46.6 % (37.0-53.0); Hemoglobin 16.6 g/dL (13.5-17.5); IMMATURE GRAN ABSOLUTE AUTO 0.02 K/mm3 (0.00-0.10); IMMATURE GRAN PERCENT AUTO 0 % (0-1); LYMPHOCYTES ABSOLUTE AUTO 1.78 K/mm3 (0.84-5.20); LYMPHOCYTES PERCENT AUTO 22 % (21-46); MONOCYTES ABSOLUTE AUTO 0.47 K/mm3 (0.16-1.47); MONOCYTES PERCENT AUTO 6 % (4-13); Mean Corpuscular HGB 32.4 pg (26.0-34.0); Mean Corpuscular HGB Conc 35.6 g/dL (31.5-36.5); Mean Corpuscular Volume 91 fL (80-100); Mean Platelet Volume 10.9 fL (9.1-12.4); NEUTROPHILS ABSOLUTE AUTO 5.34 K/mm3 (1.96-9.15); NEUTROPHILS PERCENT AUTO 67 % (41-73); Platelet Count 142 K/mm3 (150-400); RDW Coefficient Variation 12.6 % (11.7-14.2); RDW Standard Deviation 42.1 fL (35.1-46.3); Red Blood Cell Count 5.12 M/mm3 (4.30-5.90); White Blood Cell Count 8.02 K/mm3 (4.00-11.30)
[2024-10-26 21:06] LABS: Very Low Density Lipoprot Chol 20 mg/dL (6-32)
[2024-10-26 21:17] LABS: Alanine Aminotransfer (ALT/SGP 45 U/L (12-78); Albumin, Blood 3.6 g/dL (3.4-5.0); Albumin/Globulin Ratio 0.8 (0.8-1.8); Alk Phos 68 U/L (50-136); Anion Gap 11 mmol/L (3-11); Aspartate Aminotrans (AST/SGOT 36 U/L (12-37); Bilirubin, Total 1.1 mg/dL (0.1-1.0); Blood Urea Nitrogen 11 mg/dL (8-24); Bun/Creatinine Ratio 9.5 (12.0-20.0); CHOL/HDL RATIO 2.3; CO2, Blood 23 mmol/L (21-32); Calcium, Blood 9.4 mg/dL (8.5-10.1); Chloride, Blood 105 mmol/L (98-108); Cholesterol 77 mg/dL (50-200); Creatinine, Blood 1.16 mg/dL (0.60-1.20); Globulin, Blood 4.5 g/dL (2.2-4.0); Glomerular Filtration Rate 67 (60-); Glucose, Blood 109 mg/dL (70-99); HDL Cholesterol 34 mg/dL (>39); LDL/HDL RATIO 0.7; Low Density Lipoprotein Chol 23 mg/dL (0-110); Potassium, Blood 4.5 mmol/L (3.5-5.5); Sodium, Blood 134 mmol/L (136-145); Total Protein, Blood 8.1 g/dL (6.4-8.2); Triglycerides 100 mg/dL (30-160)
== END ==
LOC: LAB SHORT 14:30 → LAB 14:30
PROVIDERS: Nurse Practitioner Family
DX: I10 Essential (primary) hypertension (principal); E78.2 Mixed hyperlipidemia; E83.42 Hypomagnesemia
CPT/HCPCS: 80053; 80061; 83735; 84443; 85025

== ENCOUNTER 2025-07-09 18:54 | Emergency (ER) | payer MEDICARE, OTHER ==
[~2025-07-09] VITALS: Ht 182.9 cm; Wt 83.9 kg
[2025-07-09 19:10] VITALS: BP 130/90
== END 2025-07-09 20:51 | disposition home or self-care (01) ==
LOC: ER 18:54
DX: S81.811A Laceration without foreign body, right lower leg, initial encounter (principal); J44.9 Chronic obstructive pulmonary disease, unspecified; I10 Essential (primary) hypertension; W22.8XXA Striking against or struck by other objects, initial encounter; Z79.899 Other long term (current) drug therapy; Z79.82 Long term (current) use of aspirin; Z87.891 Personal history of nicotine dependence
CPT/HCPCS: 12002; 99282-25